=== PATIENT | male | born 1970 | race Caucasian/White ===

== ENCOUNTER 2017-08-18 17:23 | Emergency (ER) | payer MEDICAID ==
[2017-08-18] MEDS: DIPHENHYDRAMINE 50 MG INJ IV (20:08)
[2017-08-18] MEDS: SOD CHLORIDE 0.9% 1,000 ML IV (20:08)
[2017-08-18] MEDS: KETOROLAC 15 MG INJ IV (20:08)
[2017-08-18 20:39] LABS: ADD MAN DIFF? NO
[2017-08-18 20:42] LABS: ABNORMAL IP MESSAGE 1; BASOPHILS % 0.3 % (0.0-2.0); EOSINOPHILS % 0.1 % (0.0-7.0); HEMATOCRIT 43.3 % (42.0-52.0); LYMPHOCYTES # 0.6 10^3/ul (0.8-2.9); LYMPHOCYTES % 6.1 % (15.0-51.0); MEAN CORPUSCULAR HEMOGLOBIN 33.6 pg (29.0-33.0); MEAN CORPUSCULAR HGB CONC 34.6 g/dl (32.0-37.0); MEAN CORPUSCULAR VOLUME 96.9 fl (82.0-101.0); MONOCYTE # 0.5 10^3/ul (0.3-0.9); MONOCYTES % 5.3 % (0.0-11.0); NEUTROPHIL # 7.9 10^3/ul (1.6-7.5); NEUTROPHILS % 87.8 % (39.0-77.0); PLATELET COUNT 155 10^3/UL (140-415); POSITIVE DIFF @See below; RED BLOOD COUNT 4.47 10^6/ul (4.70-6.10); RED CELL DISTRIBUTION WIDTH 12.4 % (11.5-14.5)
[2017-08-18 21:01] LABS: ANION GAP 15 (8-16); BLOOD UREA NITROGEN 16 mg/dl (7-20); CALCIUM 9.3 mg/dl (8.4-10.2); CARBON DIOXIDE 27 mmol/L (21-31); CHLORIDE 103 mmol/L (97-110); CREATININE 1.04 mg/dl (0.61-1.24); GLUCOSE 105 mg/dl (70-220); POTASSIUM 4.2 mmol/L (3.5-5.1); SODIUM 141 mmol/L (135-144)
[2017-08-18] MEDS: ACETAMINOPHEN 500 MG TAB PO (23:18)
== END 2017-08-18 23:33 | disposition home or self-care (01) ==
LOC: E/R 17:23
DX: B34.9 Viral infection, unspecified (principal); R40.2252 Coma scale, best verbal response, oriented, at arrival to emergency department; T78.3XXA Angioneurotic edema, initial encounter; R40.2142 Coma scale, eyes open, spontaneous, at arrival to emergency department; R40.2362 Coma scale, best motor response, obeys commands, at arrival to emergency department
CPT/HCPCS: 36415; 80048; 85025; 96374; 96375; 99284-25

== ENCOUNTER 2018-01-11 13:12 | Emergency (ER) | payer MEDICAID ==
[2018-01-11] MEDS: ACETAMINOPHEN 325 MG TAB PO (15:09)
[2018-01-11] MEDS: DIPHTH/TET/ACEL PERTUSS (ADULT) 0.5 ML VIAL IM* (15:12)
[2018-01-11] MEDS: CEFAZOLIN 1 GM INJ IM (16:07)
[2018-01-11] MEDS: LIDOCAINE 2% (MDV) 20 ML INJ INJ (16:17)
[2018-01-11] MEDS: IBUPROFEN 600 MG TAB PO (18:13)
[2018-01-11] MEDS: NICARDipine HCL 30 MG CAPSULE PO (18:14)
[2018-01-11] MEDS ORDERED: morphine 4 MG/ML VIAL IM (18:57)
[2018-01-11] MEDS: HYDROmorphONE 0.5 MG/0.5 ML SYG IM (19:09)
== END 2018-01-11 19:41 | disposition home or self-care (01) ==
LOC: FTE 13:12
DX: S61.217A Laceration without foreign body of left little finger without damage to nail, initial encounter (principal); W27.0XXA Contact with workbench tool, initial encounter; Y92.9 Unspecified place or not applicable; Z23 Encounter for immunization
CPT/HCPCS: 12002; 73140; 90471; 90715; 96372; 99284-25

== ENCOUNTER 2018-01-13 15:00 | Emergency (ER) | payer MEDICAID ==
[2018-01-13 17:38] LABS: ADD MAN DIFF? NO
[2018-01-13 17:42] LABS: BASOPHILS % 0.3 % (0.0-2.0); EOSINOPHILS # 0.1 10^3/ul (0.0-0.5); EOSINOPHILS % 2.1 % (0.0-7.0); HEMOGLOBIN 14.2 g/dl (14.0-18.0); LYMPHOCYTES # 1.5 10^3/ul (0.8-2.9); LYMPHOCYTES % 23.5 % (15.0-51.0); MEAN CORPUSCULAR HGB CONC 34.6 g/dl (32.0-37.0); MEAN CORPUSCULAR VOLUME 95.3 fl (82.0-101.0); MEAN PLATELET VOLUME 10.1 fl (7.4-10.4); MONOCYTE # 0.5 10^3/ul (0.3-0.9); MONOCYTES % 7.9 % (0.0-11.0); NEUTROPHIL # 4.1 10^3/ul (1.6-7.5); NEUTROPHILS % 65.6 % (39.0-77.0); PLATELET COUNT 234 10^3/UL (140-415); RED CELL DISTRIBUTION WIDTH 11.6 % (11.5-14.5)
[2018-01-13 17:42] LABS: WHITE BLOOD COUNT 6.3 10^3/ul (4.8-10.8)
[2018-01-13 18:00] LABS: INR 0.87; PROTIME 11.9 Sec (11.9-14.9); PT RATIO 0.9
[2018-01-13 18:01] LABS: PARTIAL THROMBOPLASTIN TIME 30.9 Sec (23.0-35.0)
[2018-01-13 18:05] LABS: ALANINE AMINOTRANSFERASE 37 IU/L (13-69); ALBUMIN 4.1 g/dl (3.3-4.9); ALBUMIN/GLOBULIN RATIO 1.07; ALKALINE PHOSPHATASE 111 IU/L (42-121); ANION GAP 11 (5-13); ASPARTATE AMINO TRANSFERASE 40 IU/L (15-46); BILIRUBIN,INDIRECT 0.6 mg/dl (0-1.1); BILIRUBIN,TOTAL 0.6 mg/dl (0.2-1.3); BLOOD UREA NITROGEN 15 mg/dl (7-20); CALCIUM 9.2 mg/dl (8.4-10.2); CARBON DIOXIDE 24 mmol/L (21-31); CHLORIDE 107 mmol/L (97-110); CREATINE KINASE 352 IU/L (23-200); CREATININE 0.84 mg/dl (0.61-1.24); Estimated GFR > 60 mL/min (>60); GLUCOSE 103 mg/dl (70-220); POTASSIUM 4.1 mmol/L (3.5-5.1); SODIUM 142 mmol/L (135-144); TOTAL PROTEIN 7.9 g/dl (6.1-8.1)
[2018-01-13] MEDS ORDERED: NICARDipine HCL 30 MG CAPSULE (18:12)
[2018-01-13] MEDS: NICARDipine HCL 30 MG CAPSULE PO (18:14)
[2018-01-13 18:17] LABS: CK INDEX 0.1; CK-MB 0.45 ng/ml (0.0-2.4); TROPONIN-I < 0.012 ng/ml (0.000-0.120)
== END 2018-01-13 19:03 | disposition home or self-care (01) ==
LOC: E/R 15:00
DX: I10 Essential (primary) hypertension (principal); Z48.01 Encounter for change or removal of surgical wound dressing
CPT/HCPCS: 80053; 82550; 82553; 84484; 85025; 85610; 85730; 93005; 99284-25